=== PATIENT | female | born 1990 | race African-American/Black ===

== ENCOUNTER 2023-05-03 02:24 | Emergency (ER) | payer MEDICAID ==
[~2023-05-03] VITALS: Ht 170.2 cm; Wt 141.0 kg
[~2023-05-03 02:24] MED LIST: ALBUTEROL; NORE7TAB PO
[2023-05-03 02:59] VITALS: BP 138/54; O2SAT 99
[2023-05-03] MEDS ORDERED: AZIT250T12 MT (04:55)
[2023-05-03] MEDS ORDERED: INDO50CA98 MT (04:57)
[2023-05-03] MEDS ORDERED: INDOMETHACIN 25MG CAPSULE PO ONE (05:00)
[2023-05-03 05:15] VITALS: PULSE 75; RESP 18; TEMP 98.6
== END 2023-05-03 05:16 | disposition home or self-care (01) ==
LOC: ER 02:24
DX: J40 Bronchitis, not specified as acute or chronic (principal); Z98.890 Other specified postprocedural states
CPT/HCPCS: 71045; 87070; 87430; 99283

== ENCOUNTER 2023-09-30 15:52 | Emergency (ER) | payer MEDICAID ==
[~2023-09-30] VITALS: Ht 170.2 cm; Wt 146.0 kg
[~2023-09-30 15:52] MED LIST changes: +AZIT250T12 MT; +INDO50CA98 MT
[2023-09-30 16:15] VITALS: BP 131/83; PULSE 75; RESP 17; TEMP 98.9; O2SAT 99
[2023-09-30] MEDS ORDERED: NAPR-681 PO (17:48)
== END 2023-09-30 18:21 | disposition home or self-care (01) ==
LOC: ER 15:52
DX: S60.211A Contusion of right wrist, initial encounter (principal); J45.909 Unspecified asthma, uncomplicated; Z79.899 Other long term (current) drug therapy; W18.39XA Other fall on same level, initial encounter; Y93.89 Activity, other specified; Y92.89 Other specified places as the place of occurrence of the external cause; Y99.8 Other external cause status
CPT/HCPCS: 73110; 73130; 81025; 99284